=== PATIENT | female | born 1970 | race Caucasian/White ===

== ENCOUNTER 2021-05-11 05:05 | Day surgery (SDC) | payer MEDICAID ==
[2021-05-09 16:03] LABS: HEMATOCRIT 39.2 % (36.0-48.0); HEMOGLOBIN 13.2 g/dL (12-16); MCH 30.4 pg (26.0-34.0); MCHC 33.5 g/dL (31.0-37.0); MCV 90.5 fL (80.0-100.0); MEAN PLATELET VOLUME 7.8 fL (7.4-10.4); RBC 4.33 10x6/uL (4.00-5.40)
[~2021-05-11] VITALS: Ht 172.7 cm; Wt 74.8 kg
--- NOTE | ~2021-05-11 | OP ---
PATIENT NAME: KEYANA MUÑOZ MEDICAL RECORD: [id number] :70 LOCATION:[facility] ADMISSION DATE: SURGEON: WINSOME VERA DPM DATE OF OPERATION: 05/11/2021 PREOPERATIVE DIAGNOSES: 1. Plantar flexed left third metatarsal. 2. Hammertoe, left fourth digit. 3. Spur medial left fifth digit. POSTOPERATIVE DIAGNOSES: 1. Plantar flexed left third metatarsal. 2. Hammertoe, left fourth digit. 3. Spur medial left fifth digit. PROCEDURES: 1. Left third metatarsal Lynn osteotomy. 2. Left fourth PIPJ fusion. 3. Left fifth digit spur removal. ANESTHESIA: General with local infiltrate utilizing 18 cc of 1:1 mix of lidocaine and Marcaine plain around the third and fourth and fifth ray. PREOPERATIVE DETAILS: The patient was taken to the OR and placed on the operating table in a supine position. This was followed by induction of general anesthesia and infiltration of local anesthetic. The left extremity was then prepped and draped in the usual aseptic technique. At this time, an Esmarch was placed on the foot and wrapped around the ankle. PROCEDURE #1: Left third metatarsal Lynn osteotomy. A #15 blade was used to create a 3.5 cm linear incision over the third MPJ. The incision was deepened down through the subcutaneous tissue to the extensor tendons. The extensor longus and brevis were then split giving access to the dorsal aspect of the third MPJ. At this time, utilizing a sagittal saw, a dorsal distal to plantar proximal cut was made through the head of the third metatarsal. Planning was then performed. Approximately 3 mm of height was gained in the metatarsal head following the plantar planning. Upon plantar palpation, this was adequate to bring the third metatarsal to the same level as the second and fourth. At this time, the wound was flushed and the osteotomy was fixated with 2 pop-off screws giving excellent rigid internal fixation. The wound was flushed again and the extensor complex was repaired with 2-0 Vicryl. The subcutaneous tissue was reapproximated with 4-0 Rapide and the skin was closed with 4-0 Rapide in a subcuticular technique followed by Dermabond. PROCEDURE #2: Left fourth PIPJ fusion. A transverse incision was made over the dorsal aspect of the PIPJ of the left fourth digit. The incision was deepened down to the extensor longus tendon, which was transected. The joint was then delivered, it was noted to be significantly arthritic. The joint was then resected with a sagittal saw utilizing the HammerTube technique. The HammerTube was placed in the proximal phalanx first and then the capital fragment was placed on top of the HammerTube, noting excellent alignment as well as stability of the fusion site. The wound was flushed. The extensor longus was repaired with 4-0 Rapide and the skin was closed with 4-0 Rapide in a subcuticular technique followed by Dermabond. OPERATIVE REPORT [id number] KEYANA MUÑOZ PROCEDURE #3: Spur removal, left fifth digit medial aspect. A #15 blade was used to create a 0.75 cm linear incision over the medial aspect of the fifth digit DIPJ area. The incision was deepened down sharply. The spur was then visualized and removed with a rongeur and smoothed with a bone rasp. The wound was flushed. The wound was then closed with 4-0 Rapide in a simple interrupted technique followed by Dermabond. Adaptic, 4 x 4 and Conform were used to dress all wounds followed by application of a modified Garcia compression dressing. The Esmarch was removed prior to application of the dressing. POSTOPERATIVE DETAILS: The patient tolerated the procedure well and left the OR with vital signs stable and vascular status at preoperative levels. The patient was transported to recovery per anesthesia in stable condition. TRANSINT:[id number] Voice Confirmation ID: [id number] DOCUMENT ID: [id number] WINSOME VERA DPM CC: [id number] DICTATION DATE: 05/11/21820 [place] ARTIST: 05/11/21933 [facility] [address] [id number]
[~2021-05-11 05:05] MED LIST: ACETAMINOPHEN325 MG; ARAVA10 MG PO; ELIQUIS2.5 MG; FISH OIL 1,0001 CA1 PO; GABAPENTIN100 MG; PAXIL40 MG PO; PREDNISONE2.5 MG PO; VITAMIN D31250 MCG
[2021-05-11 05:53] LABS: HCG URINE NEGATIVE (NEGATIVE)
[2021-05-11 05:54] VITALS: BP 119/73; Ht 172.7 cm; Wt 74.8 kg
== END 2021-05-11 10:40 | disposition home or self-care (01) ==
LOC: D.OPS 05:05
PROVIDERS: Anesthesiology; ATTEND Podiatrist
DX: M20.42 Other hammer toe(s) (acquired), left foot (principal); M77.8 Other enthesopathies, not elsewhere classified; K21.9 Gastro-esophageal reflux disease without esophagitis; I65.8 Occlusion and stenosis of other precerebral arteries; M06.9 Rheumatoid arthritis, unspecified; F41.9 Anxiety disorder, unspecified; E78.00 Pure hypercholesterolemia, unspecified; F32.9 Major depressive disorder, single episode, unspecified